=== PATIENT | female | born 1995 | race Two or more races ===

== ENCOUNTER 2022-04-21 18:11 | Emergency (ER) | payer OTHER ==
[2022-04-21 19:09] LABS: BASOPHIL 0.3 % (0-2); HCT 36.4 % (37.0-47.0); HGB 12.8 g/dl (12.5-16.0); LYMPHOCYTE 18.2 % (15-48); MCH 32.7 pg (25.0-31.0); MCHC 35.2 g/dL (32.0-36.0); MCV 93.1 fL (78.0-100.0); MONOCYTE 10.3 % (0-12); MPV 11.5 fL (6.0-9.5); NEUTROPHIL 69.6 % (41-80); NRBC 0; PLT 171 K/uL (150-400); RBC 3.91 M/uL (4.20-5.40); RDW 13.3 % (11.5-14.0); WBC 7.3 K/uL (4.0-10.5)
[2022-04-21 19:28] LABS: ALBUMIN 2.8 g/dL (3.4-5.0); BILIRUBIN - TOTAL 0.3 mg/dL (0.2-1.0); CREATININE 0.57 mg/dL (0.51-0.95); GLOBULIN (CALCULATION) 3.6 g/dL; POTASSIUM 3.9 mmol/L (3.5-5.1); TOTAL PROTEIN 6.4 g/dL (6.4-8.2)
[2022-04-21 20:10] LABS: BILIRUBIN NEGATIVE (NEGATIVE); BLOOD NEGATIVE Ery/uL (NEGATIVE); CLARITY CLEAR (CLEAR); COLOR YELLOW (YELLOW); GLUCOSE (U) 1+ mg/dL (NORMAL); LEUKOCYTES NEGATIVE Leu/uL (NEGATIVE); NITRITE NEGATIVE (NEGATIVE); PROTEIN NEGATIVE (NEGATIVE)
[2022-04-21 20:18] LABS: BACTERIA 1+; SQUAMOUS EPITHELIAL CELLS 20-50; URINARY WBC RARE
== END 2022-04-21 20:45 | disposition home or self-care (01) ==
LOC: FER 18:11
PROVIDERS: Physician Assistant
DX: O9A.213 Injury, poisoning and certain other consequences of external causes complicating pregnancy, third trimester (principal); R10.2 Pelvic and perineal pain; Z3A.32 32 weeks gestation of pregnancy; Z28.310 Unvaccinated for COVID-19; V49.50XA Passenger injured in collision with unspecified motor vehicles in traffic accident, initial encounter
CPT/HCPCS: 36415; 76805; 80053; 81001; 85025; 86900; 86901